=== PATIENT | male | born 1990 | race Two or more races ===

== ENCOUNTER 2022-12-03 15:20 | Emergency (ER) | payer OTHER ==
[~2022-12-03] VITALS: Ht 180.3 cm; Wt 88.5 kg
[2022-12-03] MEDS ORDERED: TAMS0.4C PO (18:59)
[2022-12-03] MEDS ORDERED: KETO10TA2 PO (18:59)
== END 2022-12-03 19:07 | disposition home or self-care (01) ==
LOC: ER 15:20
PROVIDERS: Emergency Medicine
DX: N20.0 Calculus of kidney (principal); R10.9 Unspecified abdominal pain